=== PATIENT | male | born 1950 | race Caucasian/White ===

== ENCOUNTER → 2017-11-19 | Outpatient (CLI) | payer MEDICARE ==
[~2017-11-19] MED LIST: ASPI81TA28 PO; HYDR25TA4 PO; IBUP-1450 PO; INDO-24 PO; LISI-725 PO; TRMCR515 TOP
[2017-11-19 11:31] LABS: BASO % 0.9 %; BASO ABS # 0.05 K/uL (0-0.2); EOS ABS # 0.17 K/uL (0-0.5); HEMATOCRIT 39.5 % (42-52); HEMOGLOBIN 13.8 g/dL (14.0-18.0); IG# 0.02 K/uL (0.00-0.02); LYMPH % 20.4 %; LYMPH ABS # 1.17 K/uL (1.2-3.4); MEAN CELL VOLUME 90.4 fL (80-100); MEAN CORPUSCULAR HEMOGLOBIN 31.6 pg (25-34); MEAN CORPUSCULAR HGB CONC 34.9 g/dl (32-36); MEAN PLATELET VOLUME 11.1 fL (7.4-10.4); MONO % 10.5 %; NEUT % 64.9 %; NEUT ABS # 3.72 K/uL (1.4-6.5); PLATELET COUNT 141 K/uL (130-400); RED CELL DISTRIBUTION WIDTH CV 13.7 % (11.5-14.5); RED CELL DISTRIBUTION WIDTH SD 45.2 fL (36.4-46.3); WHITE BLOOD COUNT 5.73 K/uL (4.8-10.8)
--- NOTE | 2017-11-19 11:35 | DIAGNOSTIC IMAGING REPORT ---
CHEST 2 VIEWS ROUTINE CLINICAL HISTORY: 67 years-old Male presenting with preoperative assessment, asymptomatic. TECHNIQUE: PA and lateral views of the chest were obtained. COMPARISON: None. FINDINGS: Cardiomediastinal silhouette normal. Lungs and pleural spaces clear. Degenerative changes of the thoracic spine. Upper abdomen normal. IMPRESSION: 1. No acute cardiopulmonary disease. Electronically signed by: Robert Roland M.D. 11/19/2017 11:34 AM Dictated Date/Time: 11/19/2017 11:33 AM
[2017-11-19 11:38] LABS: ALBUMIN 3.7 gm/dl (3.4-5.0); BLOOD UREA NITROGEN 19 mg/dl (7-18); CALCIUM 8.9 mg/dl (8.5-10.1); CARBON DIOXIDE 31 mmol/L (21-32); CREATININE 1.16 mg/dl (0.60-1.40); GLUCOSE 176 mg/dl (70-99); POTASSIUM 3.9 mmol/L (3.5-5.1); SODIUM 140 mmol/L (136-145)
[2017-11-19 12:09] LABS: HEMOGLOBIN A1C 7.1 % (4.5-5.6)
== END | disposition home or self-care (01) ==
LOC: C.CPL 10:40
PROVIDERS: ATTEND Orthopaedic Surgery Sports Medicine
DX: Z01.810 Encounter for preprocedural cardiovascular examination (principal); Z01.811 Encounter for preprocedural respiratory examination; Z01.812 Encounter for preprocedural laboratory examination

== ENCOUNTER 2021-11-27 09:01 | Observation (INO) ==
--- NOTE | 2021-10-30 16:23 | PAT Medication Instructions ---
Medication Instructions Date of Service October 30, 2021 Home Medications triamcinolone acetonide 0.1 % topical cream 1 applic topical UD PRN RT LEG aspirin 81 mg capsule 81 mg PO QAM metformin 500 mg tablet 1,000 mg PO BID acetaminophen 650 mg tablet 650 mg PO Q8H PRN Pain hydrochlorothiazide 25 mg tablet 25 mg PO QAM lisinopril 30 mg tablet 30 mg PO QAM meloxicam 15 mg tablet 15 mg PO QAM ASK your surgeon for instructions meloxicam 15 mg tablet 15 mg PO QAM STOP taking 24 hours before surgery triamcinolone acetonide 0.1 % topical cream 1 applic topical UD PRN RT LEG DO NOT take the morning of surgery metformin 500 mg tablet 1,000 mg PO BID hydrochlorothiazide 25 mg tablet 25 mg PO QAM lisinopril 30 mg tablet 30 mg PO QAM Take morning of surgery With a small sip of water, OTHERWISE NOTHING TO EAT OR DRINK AFTER MIDNIGHT: aspirin 81 mg capsule 81 mg PO QAM (unless surgeon directed otherwise) acetaminophen 650 mg tablet 650 mg PO Q8H PRN Pain (if needed) Take evening before surgery metformin 500 mg tablet 1,000 mg PO BID acetaminophen 650 mg tablet 650 mg PO Q8H PRN Pain (if needed) Other Notes If you have any questions please call us at [phone] or [phone] or [phone] or [phone]
--- NOTE | 2021-11-08 09:22 | Anesthesiology Consultation ---
Date of Service November 08, 2021 Assessment & Plan (1) Encounter for pre-operative examination: - COVID screening: Per assessment on 11/08: No known COVID-19 positive contacts or current COVID-19 related symptoms. Travel screen negative. Surgeon arranging preop COVID testing. Awaiting results. - Check BSG AM DOS - S/P Right total shoulder reversed arthroplasty (07/10/21): Grade 1 view, MAC#3, ETT 7.5 + PNB at [facility]. No issues noted per post-op anesthesia progress note. Pt states that he had RUE bruising/tenderness since surgery. He notified surgeon and PCP. Pt seen at [facility] 11/08/21- very mild small area of bruising over right forearm (no swelling/erythema). Pt reports that the area is improving and RUE CT done by PCP was unremarkable. Chart Review Chart Review: Acceptable Risk for Surgery and Patient seen in Pre Admission Testing Teaching & Discussion Pre-Anesthesia Teaching/Discussion Notes: Instructed NPO after midnight before surgery,except medications with 15 cc of water. Medication instructions provided according to the [facility] guidelines. History Surgery Operation Date: 11/27/21 13:10 Proposed Procedures p Right Shoulder Revision Reversed Total Shoulder Arthroplasty Poly Insert, Possible Revision Base Plate - Phan Haines MD Height/Weight Height: 6 ft Weight: 112.5 kg Allergies Allergy/AdvReac Type Severity Reaction Status Date / Time No Known Allergies Allergy Verified 10/29/21 12:29 Medications Home Medications Medication Instructions Recorded Confirmed Last Taken triamcinolone acetonide 0.1 % 1 applic topical UD PRN RT LEG #15 11/12/1710/2912/04/17 08:00 topical cream grams aspirin 81 mg capsule 81 mg PO QAM 06/18/21 10/29/21 07/07/21 08:00 metformin 500 mg tablet 1,000 mg PO BID 06/18/21 10/29/21 07/09/21 19:00 acetaminophen 650 mg tablet 650 mg PO Q8H PRN Pain 10/29/21 10/29/21 Unknown hydrochlorothiazide 25 mg tablet 25 mg PO QAM 10/29/21 10/29/21 Unknown lisinopril 30 mg tablet 30 mg PO QAM 10/29/21 10/29/21 Unknown meloxicam 15 mg tablet 15 mg PO QAM 10/29/21 10/29/21 Unknown Past Medical History Medical History (Updated 11/08/21 @ 11:16 by Mary Ann Shelby) Chronic anemia Diabetes mellitus, type 2 NIDDM History of COVID-19 Dx 04/14/21 (Flu-like symptoms) > resolved Hx of gout Hypertension Controlled, stable per pt Obesity Osteoarthritis Rheumatoid arthritis Exercise / Class Metabolic Activity II 4-5 Yardwork/Stairs/Walk up hill Past Family History Family History Mother Family history of diabetes mellitus Father Family hx of colon cancer Other No family history of adverse response to anesthesia Past Surgical History Surgical History (Updated 11/08/21 @ 11:17 by Mary Ann Shelby) History of cholecystectomy History of colonoscopy History of tooth extraction History of total hip arthroplasty Right JORDON (12/11/17): SAB at L4 (per anesthesia record, multiple attempts). No postop issues per anesthesia progress note. Hx of total shoulder replacement Right total shoulder reversed arthroplasty (07/10/21): Grade 1 view, MAC#3, ETT 7.5 + PNB at [facility]. No issues noted per post-op anesthesia progress note. Pt states that he had RUE bruising/tenderness since surgery. He notified surgeon and PCP. Pt seen at [facility] 11/08/21- very mild small area of bruising over right forearm (no swelling/erythema). Pt reports that the area is improving and RUE CT done by PCP was unremarkable. Past Anesthesia History No Hx of Anesthesia Complications Right total shoulder reversed arthroplasty (07/10/21): Grade 1 view, MAC#3, ETT 7.5 + PNB at [facility]. No issues noted per post-op anesthesia progress note. Pt states that he had RUE bruising/tenderness since surgery. He notified surgeon and PCP. Pt seen at [facility] 11/08/21- very mild small area of bruising over right forearm (no swelling/erythema). Pt reports that the area is improving and RUE CT done by PCP was unremarkable. History of PONV No Hx of PONV and No Hx of Motion Sickness Social History Smoking Status: Never smoker tobacco type: smokeless tobacco Do You Dip or Chew Tobacco: No (Quit 30 years) Hx Alcohol Use: Yes Alcohol type: wine and hard liquor alcohol intake frequency: holidays/special occasions only Hx Substance Use: No substance use type: does not use Review of Systems Patient denies chest pain, shortness of breath, dyspnea on exertion, fever, chills, cough, wheezing, palpitations. Physical Exam Vital Signs VITALS BP 146/87 P 61 TEMP 97.7 SP02 98%RA RESP 16 PHYSICAL Full cervical extension range of motion. Full TMJ range of motion. TMD 3 finger breaths Mallampati Score 2 Dentition: upper/lower full dentures Lungs: clear throughout to auscultation Cardiac: regular rate and rhythm, no murmurs noted Spine: normal Carotid arteries: negative bruit Extremities: non-pitting LE edema, very mild small area of bruising over right f orearm (no swelling or erythema) Lab Results Anesthesia Preop Results Results Anesthesia Widget: WBC 5.17 K/ul (4.8-10.8) 11/08/21 Hgb 12.1 g/dl (14.0-18.0) L 11/08/21 Hct 36.4 % (40.1-51.0) L 11/08/21 Plt 172 K/uL (130-400) 11/08/21 Na 142 mmol/L (136-145) 11/08/21 K 4.6 mmol/L (3.5-5.1) 11/08/21 Cl 107 mmol/L (98-107) 11/08/21 CO2 31 mmol/L (21-32) 11/08/21 BUN 29 mg/dl (6-23) H 11/08/21 Creat 1.35 mg/dl (0.6-1.4) 11/08/21 Glucose Level 83 mg/dl (70-99(Fasting)) 11/08/21 PT 10.7 Seconds (9.0-12.0) 11/08/21 PTT 24.7 Seconds (21.0-31.0) 11/08/21 INR 1.0 (0.9-1.1) 11/08/21 HA1c 5.8 % (4.5-5.6) H 11/08/21 Urine Color Yellow 11/08/21 Urine Appearance Clear (Clear) 11/08/21 Urine pH 5.5 (4.5-7.5) 11/08/21 Urine Specific [place] 1.023 (1.000-1.030) 11/08/21 Urine Protein Negative (Negative) 11/08/21 Urine Glucose (UA) Negative (Negative) 11/08/21 Urine Ketones Negative (Negative) 11/08/21 Urine Blood Negative (Negative) 11/08/21 Urine Nitrite Negative (Negative) 11/08/21 Urine Bilirubin Negative (Negative) 11/08/21 Urine Urobilinogen Negative (Negative) 11/08/21 Urine Leukocyte Esterase Negative (Negative) 11/08/21 Blood Type O Positive 11/08/21 Antibody Screen NEGATIVE 11/08/21 Testing Electrocardiogram Date: 06/21/21 NSR, rate 66 bpm Chest X-Ray Date: 06/21/21 FINDINGS: The cardiomediastinal and hilar silhouettes are within normal limits. Lungs are mildly hyperinflated with diaphragmatic flattening. There is no pneumothorax, pleural effusion, airspace consolidation or overt pulmonary edema. Cholecystectomy. Spondylitic spurring of the spine. The bones appear grossly intact. IMPRESSION: Mild hyperinflation without acute process. Cervical Spine Date: 06/21/21 FINDINGS: No fractures or subluxations are identified. Degenerative changes are noted in the cervical spine. The alignment is anatomic Prevertebral soft tissues are within normal limits. IMPRESSION: Degenerative changes without evidence of acute abnormality.
--- NOTE | 2021-11-26 12:51 | History & Physical Report ---
Date of Service November 26, 2021 Assessment & Plan (1) Instability of right shoulder joint: Plan: Treatment options discussed with the patient. He has failed conservative measures and has continued episodes of instability when he is relaxed. He would like to proceed with revision surgery. Risks, benefits and alternatives to surgery including but not limited to infection, DVT, pain, stiffness, need for revision surgery, damage to blood vessels, damage to nerves, PE, , were discussed with the patient and they wish to proceed. Plan for right Reverse total shoulder arthroplasty polyexchange, possible baseplate revision. Surgery scheduled for Martha Ashraf on November [address] Haines. All questions answered. Patient follow-up postop. History of Present Illness Chief Complaint: Right shoulder pain Primary Care Provider: Bernardo Bonilla 71-year-old male with past medical history significant for hypertension and diabetes mellitus type 2. He presents with ongoing complaint of right shoulder instability and pain. He underwent a right reverse total shoulder arthroplasty last year. He presents today for revision surgery. Patient denies headaches, sweats, fevers, chills, double vision, blurred vision, cough, sore throat, dysphagia, chest pain, sob, wheezing, n/v/d/c, numbness, tingling, fatigue, u rinary symptoms, mood disorders. ROS positive for Right shoulder pain and Instability. Allergies Allergy/AdvReac Type Severity Reaction Status Date / Time No Known Allergies Allergy Verified 10/29/21 12:29 Home Medications Medication Instructions Recorded Confirmed Type triamcinolone acetonide 0.1 % 1 applic topical UD PRN RT LEG #15 11/12/17 10/29/21 History topical cream grams aspirin 81 mg capsule 81 mg PO QAM 06/18/21 10/29/21 History metformin 500 mg tablet 1,000 mg PO BID 06/18/21 10/29/21 History acetaminophen 650 mg tablet 650 mg PO Q8H PRN Pain 10/29/21 10/29/21 History hydrochlorothiazide 25 mg tablet 25 mg PO QAM 10/29/21 10/29/21 History lisinopril 30 mg tablet 30 mg PO QAM 10/29/21 10/29/21 History meloxicam 15 mg tablet 15 mg PO QAM 10/29/21 10/29/21 History Past Med/Surg History Medical History (Updated 11/26/21 @ 12:49 by Darwin Arce PA-C) Chronic anemia Diabetes mellitus, type 2 NIDDM History of COVID-19 Dx 04/14/21 (Flu-like symptoms) > resolved Hx of gout Hypertension Controlled, stable per pt Obesity Osteoarthritis Rheumatoid arthritis Surgical History (Updated 11/08/21 @ 11:17 by Mary Ann Shelby) History of cholecystectomy History of colonoscopy History of tooth extraction History of total hip arthroplasty Right JORDON (12/11/17): SAB at L4 (per anesthesia record, multiple attempts). No postop issues per anesthesia progress note. Hx of total shoulder replacement Right total shoulder reversed arthroplasty (07/10/21): Grade 1 view, MAC#3, ETT 7.5 + PNB at [facility]. No issues noted per post-op anesthesia progress note. Pt states that he had RUE bruising/tenderness since surgery. He notified surgeon and PCP. Pt seen at [facility] 11/08/21- very mild small area of bruising over right forearm (no swelling/erythema). Pt reports that the area is improving and RUE CT done by PCP was unremarkable. Family History Mother Family history of diabetes mellitus Father Family hx of colon cancer Other No family history of adverse response to anesthesia Social History Smoking Status: Never smoker Second Hand Exposure: No; Hx Alcohol Use: Yes Alcohol type: wine and hard liquor Hx Substance Use: No Preferred Language: Turkish Communication Ability: Effective Fiscal Clerk Required: No Beliefs That Will Affect Care: None marital status: Current Living Situation: Spouse Feels Safe at Home: Yes Assistive Devices: Denture - Upper, Denture - Lower and Glasses Review of Systems All systems reviewed & are unremarkable except as noted in HPI & below Physical Exam Constitutional: well developed and well nourished; no acute distress Eyes: PERRL, conjunctivae normal, anicteric sclerae ENMT: external ear and nose normal, oropharynx normal Neck: trachea midline, no thyromegaly Respiratory: normal respiratory effort, lungs clear to auscultation Cardiovascular: RRR, no murmur, no edema Musculoskeletal: Right shoulder: No tenderness. Some mild inferior translation but no gross subluxation with inferior shuck. Instability cannot be Reproduced with range of motion. Forward flexion to 150 degrees, abduction to 90 degrees. Has weakness with external rotation. Skin: no rashes, warm and dry Neurologic: patellar DTR's 2+ bilat, sensation intact Psychiatric: A+Ox3, euthymic affect Results & Data ([facility]) Diagnostic Findings Right reverse total shoulder arthroplasty in good alignment. No evidence of loosening.
[~2021-11-27 09:01] MED LIST changes: +ACETAMINOPHEN 500 MG TAB PO SCH; -ASPI81TA28 PO; +BUPIVACAINE 0.5 % 5 MG/1 ML PF 10ML VIAL ONE; +CeleBREX 200 MG CAP PO SCH; +FAMOTIDINE 20 MG TAB PO SCH; +GABAPENTIN 300 MG CAP PO SCH; -HYDR25TA4 PO; -IBUP-1450 PO; -INDO-24 PO; -LISI-725 PO; +LR 15ML/HR IV SCH; +METOCLOPRAMIDE HCL 10 MG TABLET PO SCH; +TRANEXAMIC ACID 1,000 MG **IV Intra-op IV SCH; +TRANEXAMIC ACID 1,000 MG **IV Pre-op IV SCH; -TRMCR515 TOP; +VANCOMYCIN HCL 1,500 MG in SODIUM CHLORIDE 0.9% 500 ML IV SCH; +ceFAZolin 2000MG 2,000 MG/15 ML SYR IV SCH; +dexAMETHasone 4 MG TAB PO SCH
[2021-11-27] MEDS ORDERED: PROPOFOL IV EMULSION 10 MG/ML 20 ML VIAL IV ONE (09:37)
[2021-11-27] MEDS ORDERED: MIDAZOLAM HCL 1 MG/ML 2ML VIAL ONE (09:37)
[2021-11-27] MEDS ORDERED: fentaNYL citrate 100 MCG/2 ML VIAL ONE (09:37)
--- NOTE | 2021-11-27 09:57 | History & Physical Bridge Note ---
Date of Service November 27, 2021 History & Physical Bridge Note I have examined the patient, reviewed the History & Physical and in the interval since the performance of the History & Physical I have noted the following changes of clinical significance: no changes noted
[2021-11-27] MEDS ORDERED: ONDANSETRON INJ 2 MG/ML 2 ML VIAL IV PRN ×2 (10:23→15:37)
[2021-11-27] MEDS ORDERED: fentaNYL citrate 100 MCG/2 ML VIAL IV PRN (10:23)
[2021-11-27] MEDS ORDERED: ePHEDrine sulfate 50 MG/ML AMP IV PRN (10:23)
[2021-11-27] MEDS ORDERED: ATROPINE SULFATE 0.1 MG/ML 10ML SYR IV PRN (10:23)
[2021-11-27] MEDS ORDERED: ROCURONIUM BROMIDE 10 MG/ML 5 ML VIAL IV ONE (12:09)
[2021-11-27] MEDS ORDERED: DEXAMETHASONE SOD INJ 4 MG/ML VIAL ONE (12:09)
[2021-11-27] MEDS ORDERED: ONDANSETRON INJ 2 MG/ML 2 ML VIAL ONE (12:09)
[2021-11-27] MEDS ORDERED: ePHEDrine sulfate 50 MG/ML AMP ONE (12:19)
[2021-11-27] MEDS ORDERED: GLYCOPYRROLATE 0.2 MG/ML VIAL ONE (13:39)
[2021-11-27] MEDS ORDERED: NEOSTIGMINE METHYLSULFATE 1 MG/ML 10ML VIAL ONE (13:39)
--- NOTE | 2021-11-27 13:51 | Operative Report ---
Post Operative Report Pre & Post Diagnosis Operation Date: 11/27/21 11:10 Pre-Op Diagnosis: Instability Right Shoulder, S/P reversed total shoulder replacement, possible failure subscapularis repair, old biceps rupture with retraction and Asa muscle Post-Op Diagnosis: Instability Right Shoulder, S/P reversed total shoulder replacement, failure of subscapularis repair and old biceps tendon rupture with retraction and Asa muscle I identified the patient and participated in the time-out.: Yes Procedure Operation Date: 11/27/21 11:10 Actual Procedures p Right Shoulder Revision of Reversed Total Shoulder Arthroplasty polyethylene with constrained insert, and revision base plate, excision suture material and irrigation and debridement of glenohumeral joint.. (Right) - Phan Haines MD Surgeon Phan Haines MD Blower And Compressor Assembler Dre WINN Estimated Blood Loss 20 Findings Consistent with Post-Op Diagnosis Specimens None Drains None Anesthesia Type General Regional Complications none Disposition Disposition: Recovery Room Indications 71-year-old male with instability status post reverse total shoulder replacement. He has intermittent instability activity related. He does not have any pain fever or signs of infection. 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 Implant alignment is satisfactory. No documented imaging of dislocated reversed implant as all incidents were self reducible. Patient has a cable around the proximal humerus due to a small intraoperative bone fissure treated with prophylactic cabling and there has been complete healing of the proximal humerus postoperatively. Description of Procedure Patient was taken to the operating room the size under general anesthetic with regional block to the right upper extremity. He was placed on a 30 degree beachchair position on the operating room table with a towel in the medial where his right scapula. He was translated right side the bed so shoulder immediately off the bed is necessary. He had teds and SCDs placed. His head was placed on a foam headrest and and protective eyewear was placed. Right shoulder exam demonstrated had some shuck about 4 mm with his arm in 45 degrees with translation but when his arm is at the side he had maybe a millimeter of shuck only. I took his arm through full range of motion and could not recreate the instability. The scar was well-healed with benign appearance, there is no ecchymosis, there is no swelling, there is no erythematous no drainage. Right upper extremity was prepped and draped in sterile fashion with ChloraPrep. Previous longitudinal incision scar in the deltopectoral region was used for the incision. The skin incised sharply and subcutaneous flaps were elevated. The cephalic vein was still intact and was dissected out retracted laterally with the deltoid. Pectoralis was retracted medially. Pectoralis repair was intact. The scarred clavipectoral fascia was released on the lateral aspect of the conjoined tendon. Some blood-tinged fluid was encountered upon releasing the fascia and it was noted that the subscapularis tendon repair was completely ruptured and retracted medially and scarred to the undersurface of the conjoined tendon. All sutures were still intact and the bone and the knots were securely tied but he had tore through the soft tissue of the subscapularis with a soft tissue failure of the repair. There was some scarred bursal tissue in the glenohumeral joint space. The humeral and glenoid implants are solidly intact. The scarred bursal tissue was resected. There was still some anterior capsule a ttached along the inferior neck of the humerus. On the lateral side of the humerus subperiosteal dissection electrocautery was performed along the inferior neck down to the level of the previously placed cable and then carefully reflected off the anterior neck of the humerus in order to fully expose the implant. The pectoralis repair was left intact. The implant was dislocated with use of a bone hook. The polyethylene reversed insert was removed using the extraction device to compress the metal fixation ring and then the polyethylene was removed with a small artist chisel. Polyethylene had no damage no signs of any cause of implant failure. Baseplate was stable and intact. The glenosphere was stable and intact. After copious irrigation trial reduction was performed using a constrained +9 mm reversed trial insert. There was still a small amount of shuck despite the constrained insert and I felt we could get better stability as the soft tissues of the conjoined tendon and deltoid was still slightly lax. I used a tuning fork extractor to remove the baseplate. Trial base plates were used and trial polyethylene insert constrained retentive inserts were trialed. To get complete stability with no shuck a 12 mm high offset trial humeral tray with a +6,42 retentive, constrained reversed insert was required. After removal of the trial and more copious irrigation the final implant was placed. The stem Little taper was dried. The [place]ier +12 mm high offset humeral tray was impacted into the stem with stable fixation placed in the high offset at the 12:00 superior position. The 42, +6 mm retentive, constrained polyethylene insert was then impacted into the baseplate with stable fixation. The humerus was then reduced to the glenoid sphere. There was no shuck with traction at 45 degrees and with the arm to side there was full stable range of motion with range of motion being 120 degrees of forward flexion, 80 degrees abduction, 75 degrees external rotation and 90 degrees of internal rotation. Wound was irrigated, the deltopectoral interval was repaired with interrupted [id number] #1 Vicryl sutures. The subcutaneous tissues were closed noted 2-0 Vicryl sutures. Skin was closed with diogo sterile dressings were applied. Patient tolerated the procedure well. Dre WINN was my behavioral assistant who functioned as behavioral assistant as his primary function and he participated in all aspects of the procedure including arm positioning or manipulation, soft tissue retraction, instrument management, the outer wound closure and postoperative care. I attest to the content of the Intraoperative Record and any orders documented therein. Any exceptions are noted below.
--- NOTE | 2021-11-27 14:40 | XRay Report ---
XR shoulder RT min 2V routine CLINICAL HISTORY: Post shoulder surgery COMPARISON STUDY: None. FINDINGS: Status post reverse right total shoulder arthroplasty. The hardware is intact. No fracture or dislocation. Skin diogo are in place. IMPRESSION: Status post reverse right total shoulder arthroplasty. No evidence for hardware complica tion. ACT 112: Negative or not required by law. Electronically signed by: Nicholas Camarillo M.D. 11/27/2021 2:39 PM
--- NOTE | 2021-11-27 14:46 | Anesthesiology Progress Note ---
Date of Service November 27, 2021 Anesthesia Post Procedure Vital Signs Vital Signs: Temp Pulse Pulse Resp BP Pulse Ox O2 Del Method 11/27/21 14:40 97.3 F L 70 13 146/85 H 95 Nasal Cannula 11/27/21 14:30 83 10 L 156/88 H 96 Nasal Cannula 11/27/21 14:20 79 14 153/92 H 97 Room Air 11/27/21 14:10 83 13 156/87 H 96 Oxymask 11/27/21 14:01 96.8 F L 97 H 15 162/95 H 96 Oxymask 11/27/21 10:00 98.1 F 66 20 153/102 H 97 Room Air O2 Flow Rate 11/27/21 14:40 2 11/27/21 14:30 2 11/27/21 14:20 11/27/21 14:10 5 11/27/21 14:01 5 11/27/21 10:00 Transfer of Care Handoff Completed per policy Notes Mental Status: alert / awake / arousable and participated in evaluation Patient Amnestic to Procedure: Yes Nausea / Vomiting: adequately controlled Pain: adequately controlled Airway Patency, RR, SpO2: stable & adequate BP & HR: stable & adequate Hydration State: stable & adequate Anesthetic Complications: no major complications apparent and Pt Satisfied with anesthetic care
[2021-11-27] MEDS ORDERED: PHARMACY GLYCEMIC MGMT CONSULT PRN (15:37)
[2021-11-27] MEDS ORDERED: MAGNESIUM HYDROXIDE SUSP 30 ML UDC PO PRN (15:37)
[2021-11-27] MEDS ORDERED: METOCLOPRAMIDE HCL INJ 5 MG/ML 2 ML VIAL IV PRN (15:37)
[2021-11-27] MEDS ORDERED: bisacodyL 10 MG SUPP PR PRN (15:37)
[2021-11-27] MEDS ORDERED: SODIUM CHLORIDE 0.9% 1000ML 1,000 ML IV SCH (15:37)
[2021-11-27] MEDS ORDERED: NALOXONE HCL 0.4 MG/1 ML VIAL/CARP IV PRN (15:37)
[2021-11-27] MEDS ORDERED: HYDROmorphone INJ 0.5 MG/0.5 ML SYR IV PRN (15:37)
[2021-11-27] MEDS ORDERED: TRIAMCINOLONE ACET 0.1% CR 15 GM TUBE TOP PRN (15:37)
[2021-11-27] MEDS ORDERED: oxyCODONE HCL IR 5 MG TAB (IMMEDIATE RELEASE) PO PRN (15:37)
[2021-11-27] MEDS ORDERED: CARBOHYDRATES FOR HYPOGLYCEMIA PO PRN (16:15)
[2021-11-27] MEDS ORDERED: GLUCOSE 10 TAB/TUBE PO PRN (16:15)
[2021-11-27] MEDS ORDERED: GLUCAGON FOR INJ 1 MG VIAL IM PRN (16:15)
[2021-11-27] MEDS ORDERED: GLUCOSE 40% GEL 15 GM TUBE PO PRN (16:15)
[2021-11-27] MEDS ORDERED: DEXTROSE 50% 50 ML SYRINGE IV PRN (16:15)
--- NOTE | 2021-11-27 17:28 | Hospitalist Consultation ---
Date of Consultation November 27, 2021 Assessment & Plan (1) Instability of right shoulder joint: Patient is POD #0 s/p reversed total shoulder replacement with failed subscapularis repair and old bicep tendon rupture with retraction and carley muscle - Pain control per primary team- teired pain control with rescue Narcan is available - ABX per primary team - incisional care and drains per primary team - Blood transfusions per primary team - IVF per primary team - Diet per primary team - VTE prophylaxis per primary team- SCDs - PT/OT per primary team Recommendations Recommendations: - Hold ACEi in AM follow renal indices- if stable resume - Placed PPI with asa, NSAID use, and pre-operative dose of Decadron - Tiered pain control as you have done with rescue Narcan - Glycemic control consultation to pharmacy already placed by primary team We will sign off at this time. Please re-consult us if clinical course changes. Thank you for this interesting consult. (2) Diabetes mellitus, type 2: Glycemic consult placed to pharmacy per primary team - follow with PCP as outpatient (3) Hypertension: Continue HCTZ - ACEi follow renal indices in am and restart if stable - call if SBP > 180 (4) Chronic anemia: Normocytic/normochromic with review of labs performed 11/08/21 unsure of previous workup- continue evaluation with PCP - follow HGB in am - Platelet count normal - RDW 13% (5) Rheumatoid arthritis: Hx of - managment per PCP no acute intervention (6) Osteoarthritis: As matt Supervising Physician Co-Signing Physician Notes I personally saw and examined the patient. I verified all steiner points and agree with Phillip Ortiz PA-C with the following exceptions and/or additions: 71 year old male POD #0 s/p reversed total shoulder replacement. O/E HS1+2, RRR, Chest CTAB, Abdo SNT A/P Reviewed medications with patient. No change to plan above. No chronic changes in medications recommended. Thank you for the consult. We will review labs in the morning but given stability of patient we will sign off at this time. Please contact the [facility] hospitalist filling station laborer for any questions or concerns. History of Present Illness Reason for Consultation: Post operative managment Requesting Physician: Dr. Haines Attending Physician: Phan Haines MD History of Present Illness 71 YOM with PCP of Bernardo Bonilla, with no medical records in our system. He has been seen here for his multiple surgical procedures. No clearance noted on chart. Information used for this note was obtained by patient and history that we have available. Patient with a history of DMII, HTN, OA, RA. Patient denies any history of smoking or CPAP use. No history of heart attacks or angina. He reports recent increas in his Mobic for his pain. Patient was evaluated in his room postoperatively. He is awake, on room air, sitting up and eating his dinner. His pain is controlled and without nausea/vomiting, his right shoulder is in a sling, with movement and sensation in his fingers. He is on room air, HR 80s and hemodynamics are stable. A glycemic consultation was already placed by the primary service for his glucose control. Recommendations: - Hold ACEi in AM follow renal indices- if stable resume - Placed PPI with asa, NSAID use, and pre-operative dose of Decadron - Tiered pain control as you have done with rescue Narcan - Glycemic control consultation to pharmacy already placed by primary team Hospitalist Service will sign off at this time. Allergies Allergy/AdvReac Type Severity Reaction Status Date / Time No Known Allergies Allergy Verified 11/27/21 10:06 Home Medications Medication Instructions Recorded Confirmed Type triamcinolone acetonide 0.1 % 1 applic topical UD PRN RT LEG #15 11/12/17 11/27/21 History topical cream grams aspirin 81 mg capsule 81 mg PO QAM 06/18/21 11/27/21 History metformin 500 mg tablet 1,000 mg PO BID 06/18/21 11/27/21 History hydrochlorothiazide 25 mg tablet 25 mg PO QAM 10/29/21 11/27/21 History lisinopril 30 mg tablet 30 mg PO QAM 10/29/21 11/27/21 History acetaminophen 500 mg tablet 1,000 mg PO Q8 14 days #84 tabs 11/28/21 Rx (Tylenol Extra Strength) cefadroxil 500 mg capsule 500 mg PO BID #28 caps 11/28/21 Rx oxycodone 5 mg tablet 5 mg PO Q4H PRN pain #30 tabs 11/28/21 Rx polyethylene glycol 3350 17 gram 17 g PO DAILY PRN constipation #5 11/28/21 Rx oral powder packet (Miralax) ea Patient History Medical History (Updated 11/27/21 @ 18:04 by LULI Weber) Chronic anemia Diabetes mellitus, type 2 NIDDM History of COVID-19 Dx 04/14/21 (Flu-like symptoms) > resolved Hx of gout Hypertension Controlled, stable per pt Obesity Osteoarthritis Rheumatoid arthritis Surgical History History of cholecystectomy History of colonoscopy History of tooth extraction History of total hip arthroplasty Right JORDON (12/11/17): SAB at L4 (per anesthesia record, multiple attempts). No postop issues per anesthesia progress note. Hx of total shoulder replacement Right total shoulder reversed arthroplasty (07/10/21): Grade 1 view, MAC#3, ETT 7.5 + PNB at [facility]. No issues noted per post-op anesthesia progress note. Pt states that he had RUE bruising/tenderness since surgery. He notified surgeon and PCP. Pt seen at [facility] 11/08/21- very mild small area of bruising over right forearm (no swelling/erythema). Pt reports that the area is improving and RUE CT done by PCP was unremarkable. Family History Mother Family history of diabetes mellitus Father Family hx of colon cancer Other No family history of adverse response to anesthesia Social History Smoking Status: Never smoker Second Hand Exposure: No; Do You Dip or Chew Tobacco: No (Quit 30 years); Tobacco Cessation Education Requested by Patient: No Hx Alcohol Use: Yes Alcohol type: wine and hard liquor Hx Substance Use: No Preferred Language: Chinese Communication Ability: Effective Medical Office Receptionist Assistant Required: No Beliefs That Will Affect Care: None marital status: Current Living Situation: Spouse Other Information That Helps Us Care for You: No Feels Safe at Home: Yes Safety Concerns: Feels Safe At This Time Assistive Devices: Cane and Walker Review of Systems Review of Systems: REVIEW OF SYSTEMS: Constitutional: No fever, sweats or chills Eyes: No diplopia, no worsening or blurred vision ENT: normal hearing, no trouble swallowing Respiratory: No cough, sputum, dyspnea at rest or on exertion Cardiovascular: No chest pain, tightness or palpitations Abdomen: No pain, nausea, vomiting, diarrhea or constipation Musculoskeletal: (+) right shoulder joint pain, calf pain, swelling Neurologic: No weakness, numbness/tingling, or balance problems Psychiatric: No anxiety or depression Skin: No rash or itch Physical Exam Physical Exam: PHYSICAL EXAM: General: awake, alert, no apparent distress Head: Normocephalic, atraumatic ENT: PERRL, EOMI, no pharyngeal exudate, mucous membranes moist Neuro: AAO x 3, speech clear and appropriate, strength intact bilaterally 5/5, sensation intact and equal all extremities and dermatomes, no pronator drift Chest: equal rise and fall of the chest, no accessory muscle use, no heaves or thrills, Clear to auscultation, on room air, Cardiac: Regular rate and rhythm, skin warm dry, cap refill <3 seconds, peripheral pulses +2 no JVD, no murmur, no edema GI: NABS x 4 quadrants, soft, nontender to palpation, no rebound, guarding or tenderness : Spontaneously voiding, no pain, no CVA tenderness, Extremities: Normal inspection, no peripheral edema or erythema, calfs nontender to palpation Psych: Normal mood and affect Skin: Right shoulder incision covered with foam tape and in sling, no surrounding hematoma or subq air felt, no rash or erythema Results & Data Results & Data ([facility]) Vital Signs (Past 12 Hours) Vital Signs Temp Pulse Pulse Resp BP Pulse Ox O2 Del Method 11/27/21 15:48 36.4 C L 79 16 141/81 H 94 Room Air 11/27/21 14:50 58 L 12 142/84 H 97 Nasal Cannula 11/27/21 14:40 36.3 C L 70 13 146/85 H 95 Nasal Cannula 11/27/21 14:30 83 10 L 156/88 H 96 Nasal Cannula 11/27/21 14:20 79 14 153/92 H 97 Room Air 11/27/21 14:10 83 13 156/87 H 96 Oxymask 11/27/21 14:01 36.0 C L 97 H 15 162/95 H 96 Oxymask 11/27/21 10:00 36.7 C 66 20 153/102 H 97 Room Air O2 Flow Rate 11/27/21 15:48 11/27/21 14:50 2 11/27/21 14:40 2 08/24/22 14:30 2 11/27/21 14:20 11/27/21 14:10 5 11/27/21 14:01 5 11/27/21 10:00 Laboratory Results Abnormal lab results 11/27/21 11/27/21 11/27/21 Range/Units 10:02 14:07 16:53 POC Glucose 114 H 141 H 147 H (70-99) mg/dl Diagnostic Findings Shoulder X-Ray 11/27/21 14:05 XR shoulder RT min 2V routine CLINICAL HISTORY: Post shoulder surgery COMPARISON STUDY: None. FINDINGS: Status post reverse right total shoulder arthroplasty. The hardware is intact. No fracture or dislocation. Skin diogo are in place. IMPRESSION: Status post reverse right total shoulder arthroplasty. No evidence for hardware complication. ACT 112: Negative or not required by law. Electronically signed by: Nicholas Camarillo M.D. 11/27/2021 2:39 PM Medications Administered Home Medications triamcinolone acetonide 0.1 % topical cream 1 applic topical UD PRN RT LEG #15 grams 11/12/17 [History Confirmed 11/27/21] aspirin 81 mg capsule 81 mg PO QAM 06/18/21 [History Confirmed 11/27/21] metformin 500 mg tablet 1,000 mg PO BID 06/18/21 [History Confirmed 11/27/21] acetaminophen 650 mg tablet 650 mg PO Q8H PRN Pain 10/29/21 [History Confirmed 11/27/21] hydrochlorothiazide 25 mg tablet 25 mg PO QAM 10/29/21 [History Confirmed 0 11/27/21] lisinopril 30 mg tablet 30 mg PO QAM 10/29/21 [History Confirmed 11/27/21] meloxicam 15 mg tablet 15 mg PO QAM 10/29/21 [History Confirmed 11/27/21] Active Medications Acetaminophen (Acetaminophen 500 Mg Tab) 1,000 mg PO Q8 JOSIAH Stop: 12/27/21 21:59 Aspirin (Aspirin 81 Mg Chew) 81 mg PO QAM JOSIAH Stop: 12/28/21 08:59 Bisacodyl (Bisacodyl 10 Mg Supp) 10 mg TX DAILY PRN PRN Reason: Constipation Stop: 12/27/21 15:36 Dextrose (Dextrose 50% 50 Ml Syringe) 25 - 50 ml IV UD PRN; Protocol PRN Reason: Hypoglycemia Protocol Stop: 12/27/21 16:14 Docusate Sodium (Docusate Sodium 100 Mg Cap) 100 mg PO BID [facility] Stop: 12/27/21 20:59 Glucagon (Glucagon For Inj 1 Mg Vial) 1 mg IM UD PRN; Protocol PRN Reason: Hypoglycemia Protocol Stop: 12/27/21 16:14 Glucose (Glucose 40% Gel 15 Gm Tube) 15 - 30 gm PO UD PRN; Protocol PRN Reason: Hypoglycemia Protocol Stop: 12/27/21 16:14 Glucose (Glucose 10 Tab/Tube) 4 - 8 tab PO UD PRN; Protocol PRN Reason: Hypoglycemia Protocol Stop: 12/27/21 16:14 Hydrochlorothiazide (Hydrochlorothiazide 25 Mg Tab) 25 mg PO QAM [facility] Stop: 12/28/21 08:59 Hydromorphone HCl (Hydromorphone Inj 0.5 Mg/0.5 Ml Syr) 0.5 mg IV Q4H PRN PRN Reason: Pain or Pre PT Stop: 12/11/21 15:36 Sodium Chloride (Nss 1000ml) 1,000 mls @ 100 mls/hr IV .Q10H [facility] Stop: 11/28/21 06:00 Last Admin: 11/27/21 16:37 Dose: 100 mls/hr Cefazolin Sodium (Ancef 2000mg) 2,000 mg in 15 mls @ 3.75 mls/min IV Q8H [facility]; Protocol Stop: 11/28/21 04:18 Insulin Aspart (Insulin Aspart Per Unit) 0 units SC ACHS [facility] Stop: 12/27/21 16:29 Last Admin: 11/27/21 17:42 Dose: 13 units Insulin Aspart (Insulin Aspart Per Unit) 0 units SC 0000,0400 [facility] Stop: 11/28/21 04:01 Lisinopril (Lisinopril 10 Mg Tab) 30 mg PO QAM [facility] Stop: 12/28/21 08:59 Magnesium Hydroxide (Magnesium Hydroxide Susp 30 Ml Udc) 30 ml PO Q6H PRN PRN Reason: Constipation Stop: 12/27/21 15:36 Meloxicam (Meloxicam 7.5 Mg Tab) 15 mg PO QAM [facility] Stop: 12/28/21 08:59 Metoclopramide HCl (Metoclopramide Hcl Inj 5 Mg/Ml 2 Ml Vial) 10 mg IV Q6H PRN PRN Reason: Nausea And Vomiting Stop: 12/27/21 15:36 Miscellaneous (Carbohydrates For Hypoglycemia ) 15 - 30 gm PO UD PRN PRN Reason: Hypoglycemia Treatment Stop: 12/27/21 16:14 Miscellaneous Information (Pharmacy Glycemic Mgmt Consult) 1 each N/A UD PRN PRN Reason: Consult Stop: 12/27/21 15:36 Multivitamins (Multivitamin Tab) 1 tab PO QAM JOSIAH Stop: 12/28/21 08:59 Naloxone HCl (Naloxone Hcl 0.4 Mg/1 Ml Vial/Carp) 0.1 mg IV Q5M PRN PRN Reason: Oversedation/Resp Depression Stop: 12/27/21 15:36 Ondansetron HCl (Ondansetron Inj 2 Mg/Ml 2 Ml Vial) 4 mg IV Q6H PRN PRN Reason: Nausea And Vomiting Stop: 12/27/21 15:36 Oxycodone HCl (Oxycodone Hcl Ir 5 Mg Tab (Immediate Release)) 5 - 10 mg PO Q4H PRN PRN Reason: Pain or Pre PT Stop: 12/11/21 15:36 Pantoprazole Sodium (Pantoprazole 40 Mg Tab) 40 mg PO QAM JOSIAH Stop: 12/28/21 08:59 Sennosides (Senna 8.6 Mg Tab) 17.2 mg PO HS JOSIAH Stop: 12/27/21 20:59 Triamcinolone Acetonide (Triamcinolone Acet 0.1% Cr 15 Gm Tube) 1 appln TOP UD PRN PRN Reason: RT LEG Stop: 12/27/21 15:36 ECG Additional Comments: none available for review PG Care Time/CCT Total # of Minutes Spent Total Time Spent with Patient: Total time spent is greater than 50% in coordination of care (as documented) at patient's floor/unit and/or counseling patient: Coding Level of Care Code 42534 Office/OBS Consult Lvl 2 Diagnoses Instability of right shoulder joint M25.311 Diabetes mellitus, type 2 E11.9 Hypertension I10 Chronic anemia D64.9 Rheumatoid arthritis M06.9 Osteoarthritis M19.90
[2021-11-27] MEDS: INSULIN ASPART PER UNIT SC SCH ×2 (17:42→20:52)
[2021-11-27] MEDS: ceFAZolin 2000MG 2,000 MG/15 ML SYR IV SCH (20:00)
[2021-11-27] MEDS: DOCUSATE SODIUM 100 MG CAP PO SCH (20:00)
[2021-11-27] MEDS ORDERED: SENNA 8.6 MG TAB PO SCH (21:00)
[2021-11-27] MEDS: ACETAMINOPHEN 500 MG TAB PO SCH (21:45)
[2021-11-28] MEDS: INSULIN ASPART PER UNIT SC SCH ×4 (00:05→12:47)
[2021-11-28] MEDS: ceFAZolin 2000MG 2,000 MG/15 ML SYR IV SCH (03:59)
[2021-11-28] MEDS: ACETAMINOPHEN 500 MG TAB PO SCH (05:18)
[2021-11-28 07:33] LABS: Basophils # (auto) 0.02 K/uL (0-0.2); Basophils % (auto) 0.3 %; Hematocrit (blood only) 37.7 % (40.1-51.0); Hemoglobin 12.6 g/dl (14.0-18.0); Immature Granulocytes # (auto) 0.02 K/uL (0.00-0.02); Immature Granulocytes % (auto) 0.3 %; Mean Corpuscular Hemoglobin 30.7 pg (25.0-34.0); Mean Corpuscular Hgb Conc 33.4 g/dL (32.0-36.0); Mean Corpuscular Volume 91.7 fL (80.0-100.0); Mean Platelet Volume 10.7 fL (9.4-12.4); Monocytes # (auto) 0.95 K/uL (0.24-0.82); Neutrophils # (auto) 5.51 K/uL (1.4-6.5); Neutrophils % (auto) 75.4 %; Platelet Count 173 K/uL (130-400); RDW Coefficient of Variation 13.2 % (11.5-14.5); RDW Standard Deviation 44.2 fL (36.4-46.3); Red Blood Count 4.11 M/uL (4.63-6.08)
[2021-11-28 07:54] LABS: BUN Creatinine Ratio 15.3 (10-20); Calcium 8.8 mg/dl (8.5-10.1); Creatinine Clr Calc Pharmacy 65.2 ml/min; Est GFR (Non-African American) 54.4 ml/min; Potassium 4.1 mmol/L (3.5-5.1)
[2021-11-28] MEDS: DOCUSATE SODIUM 100 MG CAP PO SCH (08:53)
[2021-11-28] MEDS ORDERED: PANTOprazole 40 MG TAB PO SCH (09:00)
[2021-11-28] MEDS ORDERED: ASPIRIN 81 MG CHEW PO SCH (09:00)
[2021-11-28] MEDS ORDERED: MULTIVITAMIN TAB PO SCH (09:00)
[2021-11-28] MEDS ORDERED: hydroCHLOROthiazide 25 MG TAB PO SCH (09:00)
[2021-11-28] MEDS ORDERED: MELOXICAM 7.5 MG TAB PO SCH (09:00)
[2021-11-28] MEDS ORDERED: lisinopril 10 MG TAB PO SCH (09:00)
--- NOTE | 2021-11-28 09:59 | Orthopedic Progress Note ---
Date of Service November 28, 2021 Assessment & Plan (1) Instability of right shoulder joint: Plan: Postop day 1 status post revision right reverse TSA PT/OT protocols. Nonweightbearing right upper extremity. DVT prophylaxis-aspirin p.o. daily, SCDs. Pain management as written. Blood pressure somewhat elevated. Looking through his history, his BP has fluctuated over the last couple of years. We will discuss with the patient to have him see his primary care physician for blood pressure recheck. This has been discussed with attending hospitalist service. DC planning-patient is planning for outpatient physical therapy in the future. Plan for discharge to home today. Admission and Anticipated Discharge Date Admission Date: November 27, 2021 Subjective POD 1 Patient sitting up in bed awake and alert. Patient is getting ready to go through therapy sessions. Pain is controlled. Denies shortness of breath, chest pain, lightheadedness. Physical Exam Physical Exam: Dressings are clean, dry, and intact. He has good sensation in all of his fingers except his right thumb which has some residual numbness. He is moving all of his fingers of his hand quite well at this time. He has good wrist range of motion. He has no pain at the right elbow. And gentle range of motion actively is within normal limits. Sling is in place. Results & Data ([facility]) Vital Signs (Past 12 Hours) Vital Signs Temp Pulse Pulse Resp BP BP Pulse Ox 11/28/21 07:37 36.4 C L 75 18 155/93 H 95 11/28/21 07:18 36.6 C 79 17 150/89 H 95 11/28/21 07:09 36.4 C L 90 18 116/71 92 11/28/21 03:56 36.5 C 84 16 164/89 H 95 11/27/21 23:16 36.6 C 81 18 146/89 H 97 O2 Del Method 11/28/21 07:37 Room Air 11/28/21 07:18 Room Air 11/28/21 07:09 Room Air 11/28/21 03:56 Room Air 11/27/21 23:16 Room Air Laboratory Results Laboratory Results WBC 7.30 K/ul (4.8-10.8) 11/28/21 06:46 RBC 4.11 M/uL (4.63-6.08) L 11/28/21 06:46 Hgb 12.6 g/dl (14.0-18.0) L 11/28/21 06:46 Hct 37.7 % (40.1-51.0) L 11/28/21 06:46 MCV 91.7 fL (80.0-100.0) 11/28/21 06:46 MCH 30.7 pg (25.0-34.0) 11/28/21 06:46 MCHC 33.4 g/dL (32.0-36.0) 11/28/21 06:46 RDW Std Deviation 44.2 fL (36.4-46.3) 11/28/21 06:46 RDW Coeff of Ailin 13.2 % (11.5-14.5) 11/28/21 06:46 Plt Count 173 K/uL (130-400) 11/28/21 06:46 MPV 10.7 fL (9.4-12.4) 11/28/21 06:46 Immature Gran % (Auto) 0.3 % 11/28/21 06:46 Neut % (Auto) 75.4 % 11/28/21 06:46 Lymph % (Auto) 11.0 % 11/28/21 06:46 [place] % (Auto) 13.0 % 11/28/21 06:46 Eos % (Auto) 0.0 % 11/28/21 06:46 Baso % (Auto) 0.3 % 11/28/21 06:46 Neut # (Auto) 5.51 K/uL (1.4-6.5) 11/28/21 06:46 Lymph # (Auto) 0.80 K/uL (1.2-3.4) L 11/28/21 06:46 [place] # (Auto) 0.95 K/uL (0.24-0.82) H 11/28/21 06:46 Eos # (Auto) 0.00 K/uL (0-0.50) 11/28/21 06:46 Baso # (Auto) 0.02 K/uL (0-0.2) 11/28/21 06:46 Immature Gran # (Auto) 0.02 K/uL (0.00-0.02) 11/28/21 06:46 Sodium 137 mmol/L (136-145) 11/28/21 06:46 Potassium 4.1 mmol/L (3.5-5.1) 11/28/21 06:46 Chloride 106 mmol/L (98-107) 11/28/21 06:46 Carbon Dioxide 25 mmol/L (21-32) 11/28/21 06:46 Anion Gap 6 (3-11) 11/28/21 06:46 BUN 20 mg/dl (6-23) 11/28/21 06:46 Creatinine 1.31 mg/dl (0.6-1.4) 11/28/21 06:46 Est Cr Clr Drug Dosing 65.2 ml/min 11/28/21 06:46 Est GFR ( Amer) 63.0 ml/min 11/28/21 06:46 Est GFR (Non-Af Amer) 54.4 ml/min 11/28/21 06:46 BUN/Creatinine Ratio 15.3 (10-20) 11/28/21 06:46 Glucose 128 mg/dl (70-99(Fasting)) H 11/28/21 06:46 POC Glucose 110 mg/dl (70-99) H 11/28/21 08:27 Calcium 8.8 mg/dl (8.5-10.1) 11/28/21 06:46 SARS-CoV-2, RNA, NAAT NEGATIVE (NEGATIVE) 11/27/21 09:46 Blood Type O Positive 11/27/21 09:56 Antibody Screen NEGATIVE 11/27/21 09:56 Impressions Shoulder X-Ray 11/27/21 14:05 XR shoulder RT min 2V routine CLINICAL HISTORY: Post shoulder surgery COMPARISON STUDY: None. FINDINGS: Status post reverse right total shoulder arthroplasty. The hardware is intact. No fracture or dislocation. Skin diogo are in place. IMPRESSION: Status post reverse right total shoulder arthroplasty. No evidence for hardware complication. ACT 112: Negative or not required by law. Electronically signed by: Nicholas Camarillo M.D. 11/27/2021 2:39 PM
--- NOTE | 2021-11-28 12:36 | Pharmacy Report ---
Glycemic Ortho Sign Off Note - Date of Service November 28, 2021 - Scope Glycemic Pharmacist consulted for glycemic control and to write orders per [facility] inpatient glycemic control protocol. - Objective Accuchecks BSG (last 24hrs):: 11/27/21 11/27/21 11/27/21 14:07 16:53 20:41 Glucose POC Glucose 141 H 147 H 134 H 11/28/21 11/28/21 11/28/21 00:02 03:53 06:46 Glucose 128 H POC Glucose 104 H 113 H 11/28/21 11/28/21 08:27 11:46 Glucose POC Glucose 110 H 110 H - Assessment * 71 y/o M admitted for R shoulder replacement surgery yesterday. He has history of Type 2 diabetes. * Pt is maintained on oral antidiabeticagent[s]as anoutpatient with excellent control per recent A1c. (5.8% on 11/08/21) * Pharmacy consulted for inpatient glycemic management. * Patient received oral Dexamethasone 8 mg pre-op yesterday. However, blood sugars were not significantly elevated due to steroids * Moderate stress weight based Novolog dose was started with dinner yesterday. No basal insulin ordered since BSGs have been near goal. * He received total of 13 units of bolus insulin yesterday. * Fasting BSG was 110 mg/dl. * Novolog changed to low stress weight based insulin dosing this AM since patie nt has minimal risk factors for insulin resistance (i.e. no ongoing steroids). * For this evening, Metformin home dose resumed with dinner. Novolog carb ratio removed for that time. * Appropriate to DC insulin and resume outpatient antidiabetic regimen at discharge * Goal is to maintain BSGs <200 mg/dl (ideally <180 mg/dl) to prevent post op complications - Plan For Inpatient Glycemic Control * Basal insulin * Not needed based on A1c, pre-op BSGs, and minimal risk factors for insulin resistance * Bolus insulin * Utilize low stress weight based NovoLog correction only per scale ACHS * Resumed home antidiabetic med: Metformin 1000 mg PO BID with meals starting at dinner today. * Pharmacy has entered glycemic orders and is signing off of the glycemic consult. We will no longer be making adjustments to inpatient regimen. Please feel free to re-consult if needed. Thank you.
[2021-11-28] MEDS ORDERED: metFORMIN HCL 500 MG TAB PO SCH (17:00)
--- NOTE | 2021-11-28 18:05 | Discharge Summary ---
Date of Service November 28, 2021 Admission HPI Per Admitting Provider 71-year-old male with past medical history significant for hypertension and diabetes mellitus type 2. He presents with ongoing complaint of right shoulder instability and pain. He underwent a right reverse total shoulder arthroplasty last year. He presents today for revision surgery. Patient denies headaches, sweats, fevers, chills, double vision, blurred vision, cough, sore throat, dysphagia, chest pain, sob, wheezing, n/v/d/c, numbness, tingling, fatigue, urinary symptoms, mood disorders. ROS positive for Right shoulder pain and Instability. Admission Exam Per Admitting Provider Constitutional: well developed and well nourished; no acute distress Eyes: PERRL, conjunctivae normal, anicteric sclerae ENMT: external ear and nose normal, oropharynx normal Neck: trachea midline, no thyromegaly Respiratory: normal respiratory effort, lungs clear to auscultation Cardiovascular: RRR, no murmur, no edema Musculoskeletal: Right shoulder: No tenderness. Some mild inferior translation but no gross subluxation with inferior shuck. Instability cannot be Reproduced with range of motion. Forward flexion to 150 degrees, abduction to 90 degrees. Has weakness with external rotation. Skin: no rashes, warm and dry Neurologic: patellar DTR's 2+ bilat, sensation intact Psychiatric: A+Ox3, euthymic affect Principal Diagnosis right shoulder instability Discharge Exam Dressings are clean, dry, and intact. He has good sensation in all of his fingers except his right thumb which has some residual numbness. He is moving all of his fingers of his hand quite well at this time. He has good wrist range of motion. He has no pain at the right elbow. And gentle range of motion actively is within normal limits. Sling is in place Constitutional well developed and well nourished; no acute distress Discharge Data Allergies Allergy/AdvReac Type Severity Reaction Status Date / Time No Known Allergies Allergy Verified 11/27/21 10:06 Consultations 11/25/21 11:46 Consult Hospitalist Routine Procedures Performed Operation Date: 11/27/21 11:10 Actual Procedures p Right Shoulder Revision Reversed Total Shoulder Arthroplasty Poly Insert, revision base plate. (Right) - Phan Haines MD Ordered Studies 11/27/21 05:00 US - OR guided needle placemen Routine Hospital Course (1) Instability of right shoulder joint: Postop day 1 status post revision right reverse TSA PT/OT protocols. Nonweightbearing right upper extremity. DVT prophylaxis-aspirin p.o. daily, SCDs. Pain management as written. Blood pressure somewhat elevated. Looking through his history, his BP has fluctuated over the last couple of years. We will discuss with the patient to have him see his primary care physician for blood pressure recheck. This has been discussed with attending hospitalist service. DC planning-patient is planning for outpatient physical therapy in the future. Plan for discharge to home today. Lab Results 11/27/21 11/27/21 11/27/21 Range/Units 09:46 09:56 10:02 WBC (4.8-10.8) K/ul RBC (4.63-6.08) M/uL Hgb (14.0-18.0) g/dl Hct (40.1-51.0) % MCV (80.0-100.0) fL MCH (25.0-34.0) pg MCHC (32.0-36.0) g/dL RDW Std Deviation (36.4-46.3) fL RDW Coeff of Ailin (11.5-14.5) % Plt Count (130-400) K/uL MPV (9.4-12.4) fL Immature Gran % (Auto) % Neut % (Auto) % Lymph % (Auto) % [place] % (Auto) % Eos % (Auto) % Baso % (Auto) % Neut # (Auto) (1.4-6.5) K/uL Lymph # (Auto) (1.2-3.4) K/uL [place] # (Auto) (0.24-0.82) K/uL Eos # (Auto) (0-0.50) K/uL Baso # (Auto) (0-0.2) K/uL Immature Gran # (Auto) (0.00-0.02) K/uL Sodium (136-145) mmol/L Potassium (3.5-5.1) mmol/L Chloride (98-107) mmol/L Carbon Dioxide (21-32) mmol/L Anion Gap (3-11) BUN (6-23) mg/dl Creatinine (0.6-1.4) mg/dl Est Cr Clr Drug Dosing ml/min Est GFR ( Amer) ml/min Est GFR (Non-Af Amer) ml/min BUN/Creatinine Ratio (10-20) Glucose (70-99(Fasting)) mg/dl POC Glucose 114 H (70-99) mg/dl Calcium (8.5-10.1) mg/dl SARS-CoV-2, RNA, NAAT NEGATIVE (NEGATIVE) Blood Type O Positive Antibody Screen NEGATIVE 11/27/21 11/27/21 11/27/21 Range/Units 14:07 16:53 20:41 WBC (4.8-10.8) K/ul RBC (4.63-6.08) M/uL Hgb (14.0-18.0) g/dl Hct (40.1-51.0) % MCV (80.0-100.0) fL MCH (25.0-34.0) pg MCHC (32.0-36.0) g/dL RDW Std Deviation (36.4-46.3) fL RDW Coeff of Ailin (11.5-14.5) % Plt Count (130-400) K/uL MPV (9.4-12.4) fL Immature Gran % (Auto) % Neut % (Auto) % Lymph % (Auto) % [place] % (Auto) % Eos % (Auto) % Baso % (Auto) % Neut # (Auto) (1.4-6.5) K/uL Lymph # (Auto) (1.2-3.4) K/uL [place] # (Auto) (0.24-0.82) K/uL Eos # (Auto) (0-0.50) K/uL Baso # (Auto) (0-0.2) K/uL Immature Gran # (Auto) (0.00-0.02) K/uL Sodium (136-145) mmol/L Potassium (3.5-5.1) mmol/L Chloride (98-107) mmol/L Carbon Dioxide (21-32) mmol/L Anion Gap (3-11) BUN (6-23) mg/dl Creatinine (0.6-1.4) mg/dl Est Cr Clr Drug Dosing ml/min Est GFR ( Amer) ml/min Est GFR (Non-Af Amer) ml/min BUN/Creatinine Ratio (10-20) Glucose (70-99(Fasting)) mg/dl POC Glucose 141 H 147 H 134 H (70-99) mg/dl Calcium (8.5-10.1) mg/dl SARS-CoV-2, RNA, NAAT (NEGATIVE) Blood Type Antibody Screen 11/28/21 11/28/21 11/28/21 Range/Units 00:02 03:53 06:46 WBC 7.30 (4.8-10.8) K/ul RBC 4.11 L (4.63-6.08) M/uL Hgb 12.6 L (14.0-18.0) g/dl Hct 37.7 L (40.1-51.0) % MCV 91.7 (80.0-100.0) fL MCH 30.7 (25.0-34.0) pg MCHC 33.4 (32.0-36.0) g/dL RDW Std Deviation 44.2 (36.4-46.3) fL RDW Coeff of Ailin 13.2 (11.5-14.5) % Plt Count 173 (130-400) K/uL MPV 10.7 (9.4-12.4) fL Immature Gran % (Auto) 0.3 % Neut % (Auto) 75.4 % Lymph % (Auto) 11.0 % [place] % (Auto) 13.0 % Eos % (Auto) 0.0 % Baso % (Auto) 0.3 % Neut # (Auto) 5.51 (1.4-6.5) K/uL Lymph # (Auto) 0.80 L (1.2-3.4) K/uL [place] # (Auto) 0.95 H (0.24-0.82) K/uL Eos # (Auto) 0.00 (0-0.50) K/uL Baso # (Auto) 0.02 (0-0.2) K/uL Immature Gran # (Auto) 0.02 (0.00-0.02) K/uL Sodium (136-145) mmol/L Potassium (3.5-5.1) mmol/L Chloride (98-107) mmol/L Carbon Dioxide (21-32) mmol/L Anion Gap (3-11) BUN (6-23) mg/dl Creatinine (0.6-1.4) mg/dl Est Cr Clr Drug Dosing ml/min Est GFR ( Amer) ml/min Est GFR (Non-Af Amer) ml/min BUN/Creatinine Ratio (10-20) Glucose (70-99(Fasting)) mg/dl POC Glucose 104 H 113 H (70-99) mg/dl Calcium (8.5-10.1) mg/dl SARS-CoV-2, RNA, NAAT (NEGATIVE) Blood Type Antibody Screen 11/28/21 11/28/21 11/28/21 Range/Units 06:46 08:27 11:46 WBC (4.8-10.8) K/ul RBC (4.63-6.08) M/uL Hgb (14.0-18.0) g/dl Hct (40.1-51.0) % MCV (80.0-100.0) fL MCH (25.0-34.0) pg MCHC (32.0-36.0) g/dL RDW Std Deviation (36.4-46.3) fL RDW Coeff of Ailin (11.5-14.5) % Plt Count (130-400) K/uL MPV (9.4-12.4) fL Immature Gran % (Auto) % Neut % (Auto) % Lymph % (Auto) % [place] % (Auto) % Eos % (Auto) % Baso % (Auto) % Neut # (Auto) (1.4-6.5) K/uL Lymph # (Auto) (1.2-3.4) K/uL [place] # (Auto) (0.24-0.82) K/uL Eos # (Auto) (0-0.50) K/uL Baso # (Auto) (0-0.2) K/uL Immature Gran # (Auto) (0.00-0.02) K/uL Sodium 137 (136-145) mmol/L Potassium 4.1 (3.5-5.1) mmol/L Chloride 106 (98-107) mmol/L Carbon Dioxide 25 (21-32) mmol/L Anion Gap 6 (3-11) BUN 20 (6-23) mg/dl Creatinine 1.31 (0.6-1.4) mg/dl Est Cr Clr Drug Dosing 65.2 ml/min Est GFR ( Amer) 63.0 ml/min Est GFR (Non-Af Amer) 54.4 ml/min BUN/Creatinine Ratio 15.3 (10-20) Glucose 128 H (70-99(Fasting)) mg/dl POC Glucose 110 H 110 H (70-99) mg/dl Calcium 8.8 (8.5-10.1) mg/dl SARS-CoV-2, RNA, NAAT (NEGATIVE) Blood Type Antibody Screen Total Time Total Time Spent Total Time Spent (In Minutes): 20 Discharge Plan Discharge Items Patient Disposition: Home - Self-Care Reason For Visit: Instability Right Shoulder, S/P Total Replacement Discharge Diagnosis: Instability Right Shoulder s/p TSA Activity: Per Instructions section Weightbearing: Right non-weightbearing Non-emergency contact: Surgeon Call non-emergency contact if: you have any medication questions, your pain is not controlled, your temperature is above 101.5, your wound has increased redness and your wound has increased drainage Follow-up/Referrals: Phan Haines MD [Surgeon] - (Follow up with Dr Haines in 2 weeks from the day of your surgery for your first post operative visit.) Bernardo Bonilla [Primary Care Provider] - Diet: Carb Consistent or DM2 Addtl Attending Provider Instructions: ACTIVITY RECOMMENDATIONS: SELF CARE INSTRUCTIONS AFTER TOTAL SHOULDER ARTHROPLASTY REVERSE A. You may do daily exercises as taught in physical therapy while in hospital. No lifting with the operative arm. B. You are to wear your sling/immobilizer at all times EXCEPT when performing your daily exercises and for hygiene purposes. C. You may perform dry, daily dressing changes. Please keep your incision covered. You may shower 48 hours after surgery. Do not apply soap or any ointment/lotions directly over incision. Do not soak incision in bath tub/swimming pool. D. You may use ice as needed to operative shoulder. SPECIAL CARE INSTRUCTIONS: VERY IMPORTANT TO READ AND REVIEW A. There are a few signs you need to watch for after you are home. Call [facility] at [phone] if you experience any of the followin. Increased severe shoulder pain. Some pain is expected especially when you exercise. 2. Increased swelling in you shoulder or arm; pain or swelling in either upper extremity. 3. Any fluid drainage from the incision. 4. Shortness of breath or chest pain. B. Please call [facility] at [phone] if you have any questions or concerns about your operation or recovery. C. Call your physician if: 1. Temperature is greater than 101 degrees (F). 2. Pain is not relieved by prescribed pain medications. 3. Increase drainage or redness from incision. 4. Unanswered questions or concerns. FOLLOW UP VISIT: Please call [facility] at [phone] to schedule a follow up appointment with Dr. Haines or his PA in 12-14 days from your surgery date. * Please follow-up with your primary care physician for a repeat blood pressure check.* Stand-Alone Forms: My [facility] Aim[facility], Smoking Cessation Medications and DC Order Prescriptions: New acetaminophen [Tylenol Extra Strength] 500 mg Tablet 1,000 mg PO Q8 14 Days Qty: 84 0RF cefadroxil 500 mg capsule 500 mg PO BID Qty: 28 1RF polyethylene glycol 3350 [Miralax] 17 gram powder in packet 17 g PO DAILY PRN (Reason: constipation) Qty: 5 0RF oxycodone 5 mg tablet 5 mg PO Q4H MDD 6 PRN (Reason: pain) Qty: 30 0RF Continued triamcinolone acetonide 0.1 % Cream 1 applic TOPICAL UD PRN (Reason: RT LEG) Qty: 15 metformin 500 mg Tablet 1,000 mg PO BID aspirin 81 mg Capsule 81 mg PO QAM lisinopril 30 mg Tablet 30 mg PO QAM hydrochlorothiazide 25 mg Tablet 25 mg PO QAM Discontinued meloxicam [Mobic] 15 mg Tablet 15 mg PO QAM acetaminophen 650 mg Tablet 650 mg PO Q8H PRN (Reason: Pain) Discharge Orders: Discharge Order (Routine); Ordered 11/28/21 Ordered By: Afshin Galicia/Other Patient Handouts: Shoulder Instability, Osteoarthritis Admission Data Admit Date/Time: 11/27/21 14:05 Attending Provider: Phan Haines Admit Provider: Phan Haines Primary Care Provider: Bernardo Bonilla Other Providers: Kavon Otero Natalie B. Other Interventions: Discharge Summary Assessment (RN) Last Done: 11/28/21 11:19
== END 2021-11-28 13:54 | disposition home or self-care (01) ==
LOC: ASU 09:01 → 3E 09:01